=== PATIENT | male | born 1960 | race Caucasian/White ===

== ENCOUNTER 2018-10-29 00:25 | Outpatient (CLI) | payer OTHER ==
[2018-10-29 16:10] LABS: #Basophils 0.1 thou/uL (0.0-0.2); #Eosinphils 0.1 thou/uL (0.0-0.7); #Lymphocytes 2.3 thou/uL (1.20-3.40); #Monocytes 0.5 thou/uL (0.11-0.59); #Neutrophils 4.3 thou/uL (1.40-6.50); %Basophils 1.1 % (0.0-1.0); %Eosinophils 1.3 % (0.0-10.0); %Lymphocytes 31.9 % (21.0-51.0); %Monocytes 6.6 % (0.0-10.0); %Neutrophils 59.1 % (42.0-75.0); Hemoglobin 14.9 g/dL (14.0-18.0); Mean Corpuscular HGB CONC 33.9 g/dL (32.0-36.0); Mean Corpuscular Hemoglobin 32.7 pg (27.0-31.0); Mean Corpuscular Volume 96.5 fL (78.0-98.0); Mean Platelet Volume 7.4 fL (7.4-10.4); Platelet Count 282 thou/uL (130-400); RBC Distribution Width 12.1 % (11.5-14.5); Red Blood Cell (RBC) Count 4.55 mill/uL (4.70-6.10); White Blood Cell (WBC) Count 7.2 thou/uL (4.8-10.8)
[2018-10-29 16:20] LABS: Bacteria/HPF None Seen HPF (None Seen); Hyaline Casts/LPF NONE SEEN LPF (0-3 Hyaline); RBC/HPF None Seen HPF (0-3); Squamous Epithelial 0-3 HPF (0-3); WBC/HPF None Seen HPF (0-3)
== END 2018-10-29 00:26 | disposition home or self-care (01) ==
LOC: LABBT 00:25
PROVIDERS: ATTEND Orthopaedic Surgery Hand Surgery
DX: Z01.812 Encounter for preprocedural laboratory examination (principal); M72.0 Palmar fascial fibromatosis [Dupuytren]
CPT/HCPCS: 81015; 85025

== ENCOUNTER 2018-10-30 10:52 | Day surgery (SDC) | payer OTHER ==
[2018-10-29 14:02] VITALS: BMI 25.0
[2018-10-30] MEDS ORDERED: Fentanyl 100 MCG/2 ML VIAL ONE ×2 (12:50→15:23)
[2018-10-30] MEDS ORDERED: Lidocaine 1% PF 5 ML VIAL ONE (13:25)
[2018-10-30] MEDS ORDERED: Dexamethasone 20 MG/5 ML VIAL ONE (13:25)
[2018-10-30] MEDS ORDERED: ePHEDrine 50 MG/ML VIAL ONE (13:25)
[2018-10-30] MEDS ORDERED: PROPOFOL 200 MG/20 ML VIAL ONE (13:25)
[2018-10-30] MEDS ORDERED: Betamet Acet/Betamet Na Ph 30 MG/5 ML VIAL ONE (13:26)
[2018-10-30] MEDS ORDERED: Bacitracin Zinc Ointment 30 gm TUBE ONE (13:26)
[2018-10-30] MEDS ORDERED: Bupivacaine PF 0.5% 30 ML VIAL ONE (13:26)
[2018-10-30] MEDS ORDERED: Ketorolac Tromethamine 30 MG/ML VIAL ONE (17:19)
--- NOTE | 2018-11-02 11:15 | OP ---
DATE OF PROCEDURE: 10/30/2018 PREOPERATIVE DIAGNOSIS: 1. Left small finger Dupuytren's cord with tremendous neurovascular involvement. 2. Left ring finger Dupuytren's cord with less. PROCEDURE PERFORMED: 1. Left small finger and left ring finger subtotal palmar fasciectomy involving digits and palm. 2. Excision of Dupuytren's cord, left ring finger. 3. Excision of Dupuytren's cord, left small finger (almost 20 cm long). 4. Left small finger digital nerve neuroplasty x2, radial and ulnar. 5. Left ring finger digital neuroplasty x2, radial and ulnar. 6. Subtotal left palmar fasciectomy, the primary central cord which had spiraling of the small finger radial digital nerve completely around it from volar to midline to sub intrasheath and then out midline again. 7. Application of short-arm splint. ESTIMATED BLOOD LOSS: 20 mL. TOURNIQUET TIME: 17 minutes. Remember, the primary finding of talus was candy (candy-cane), digital nerve looping around the cord at the level of the MP joint. DESCRIPTION OF PROCEDURE: After successful general LMA technique, the limb prepped and draped. We outlined the zigzag incision to include the ring finger very thick cord that appeared to be more dimpling than what would later be demonstrated. We exsanguinated the limb, inflated the tourniquet, did time-out appropriately, 250 mmHg pressure. We then took the zigzag incision and carried through skin and subcutaneous tissue and immediately after we went through the dermis, we developed a combination of sharp dissection with tenotomy scissors and blunt dissection with sharp Crile. Then, we noticed first that the patient's small finger ring finger cord was approximately 2 cm long and bifurcated from the central cord on the palm and the index finger approximately 1 cm from the nerve, proximal to the nerve bifurcation of the 4th webspace. We identified the nerve, and then carried distally and immediately noticed that "it had a medial, superficial, and anterior orientation when it crossed over and then candy-cane around the mass at the level of the MP joint and then it came out through the mass at the level of the base of the middle phalanx." We identified the radial digital nerve on the ring finger from the ulnar digital nerve through the same incision, protected them and finally, we visualized the ulnar digital nerve of the small finger and protected it. It too was primarily lateral, became midline, superficial, anterior, and distally. Once we had done all the dissection to free the nerve, to include entering the mass to separate it into 2 halves in order to fully visualize the critical contact information, we were able to completely free all the nerves. Once this was done, the distal portion of the Dupuytren's cord in the finger was over the middle to distal third junction of the middle phalanx and we carried this through skin, subcutaneous tissue on both sides, protecting the vascular bundle, identified the neuro bundle and then slowly, but surely lifted out this all mass. Then, we did the same thing on the ulnar side protecting the nerve. At this time, the nerve wound not wrap into the mass, but had been wrapped proximally. We then removed the remaining portion of the ring finger using same technique, subtotal palmar fasciectomy, extensive subtotal palmar fasciectomy back proximal to the most proximal eruption and then once we had done this, we were able to lift it out at its root from the transverse carpal ligament without neurological vascular damage. We inflated the tourniquet, obtained hemostasis with a combination of techniques and then we were able to obtain hemostasis once we deflated the tourniquet and the final part of this procedure was closure of the wound. Once the tourniquet was deflated at 117 minutes, we were able to see that we had performed within the within allotted tissue planes of all digital nerve, common and proper were preserved throughout the entire granado. Then, we placed Celestone on the wound 5 mL, obtained full hemostasis gently, and then closed the incision with interrupted 4-0 nylon on the palm and 5-0 nylon simple on the palmar finger and 4-0 nylon mattress horizontal in the palmar wrist and metacarpals. Now, we finished injecting a total of 40 mL of 0.5% Marcaine which gave excellent blockade and the patient was prepared to be taken to recovery room. Here, the patient was prepared for discharge because he had no pain intermittently and in recovery room 30 minutes after surgery. He had a splint applied as well and he left the operating room with pink digit. No evidence of anesthetic or operative complication. Job ID: [id number]
== END 2018-10-30 18:42 | disposition home or self-care (01) ==
LOC: SDC 10:52
PROVIDERS: ATTEND Orthopaedic Surgery Hand Surgery
PROC: 0JNK0ZZ Release Left Hand Subcutaneous Tissue and Fascia, Open Approach (ICD-10-PCS; principal; 2018-10-30)
DX: M72.0 Palmar fascial fibromatosis [Dupuytren] (principal); F32.9 Major depressive disorder, single episode, unspecified; Z98.52 Vasectomy status; Z87.891 Personal history of nicotine dependence; Z98.890 Other specified postprocedural states; Z91.09 Other allergy status, other than to drugs and biological substances; Z91.018 Allergy to other foods; Z79.899 Other long term (current) drug therapy
CPT/HCPCS: 88304; J0702; J1100; J1885; J2001; J2704; J3010; J3490; S0020

== ENCOUNTER 2019-02-03 12:35 | Outpatient (CLI) | payer OTHER ==
--- NOTE | 2019-02-03 13:53 | MRI ---
MRI right hip performed W WO Con HISTORY: Right buttock mass, fibroma COMPARISON: None. FINDINGS: The area of interest was marked in the right posterior buttocks region. The exam was tailor ed for specific evaluation of this area. No mass is identified in this region. There is no abnormal enhancement seen. The underlying gluteus navi muscle is unremarkable. The gluteus minimus and medius tendon insertions appear unremarkable. No evidence of any stress edema or reaction. No soft tissue edema change. IMPRESSION: No evidence of soft tissue mass abnormal enhancement or soft tissue edema.
== END 2019-02-03 12:36 | disposition home or self-care (01) ==
LOC: TBSIIMAG 12:35
PROVIDERS: ATTEND Neurological Surgery
DX: D21.5 Benign neoplasm of connective and other soft tissue of pelvis (principal)

== ENCOUNTER 2019-02-04 07:49 | Emergency (ER) | payer OTHER ==
--- NOTE | 2019-02-04 08:45 | ULT ---
EXAM: Testicular/scrotal ultrasound HISTORY: Right testicular pain COMPARISON: None TECHNIQUE: Multiplanar grayscale and color Doppler images were obtained in a testicular/scrotal ultra sound. Spectral analysis of the Doppler waveforms of the testicles were performed. FINDINGS: Right testicle: Normal in echogenicity. No focal mass. Normal internal flow. Left testicle: Normal in echogenicity. No focal mass. Normal internal flow. Right epididymis. Enlarged compared to the left. No epididymal cyst. Normal internal flow. Left epididymis. No epididymal cyst. Normal internal flow. No hydrocele is present. No varicocele is present. IMPRESSION: Enlargement of the right epididymis without focal abnormality.
[2019-02-04 08:54] LABS: #Eosinphils 0.1 thou/uL (0.0-0.7); #Lymphocytes 1.8 thou/uL (1.20-3.40); #Monocytes 0.7 thou/uL (0.11-0.59); #Neutrophils 7.7 thou/uL (1.40-6.50); %Basophils 0.3 % (0.0-1.0); %Eosinophils 0.7 % (0.0-10.0); %Lymphocytes 17.7 % (21.0-51.0); %Monocytes 6.8 % (0.0-10.0); %Neutrophils 74.6 % (42.0-75.0); Hemoglobin 15.5 g/dL (14.0-18.0); Mean Corpuscular HGB CONC 34.8 g/dL (32.0-36.0); Mean Corpuscular Hemoglobin 32.8 pg (27.0-31.0); Mean Corpuscular Volume 94.4 fL (78.0-98.0); Mean Platelet Volume 7.3 fL (7.4-10.4); Platelet Count 279 thou/uL (130-400); RBC Distribution Width 11.6 % (11.5-14.5); Red Blood Cell (RBC) Count 4.74 mill/uL (4.70-6.10); White Blood Cell (WBC) Count 10.3 thou/uL (4.8-10.8)
[2019-02-04 09:26] LABS: ALT (SGPT) 17 U/L (8-55); AST (SGOT) 10 U/L (5-34); Albumin 4.4 g/dL (3.5-5.0); Alkaline Phosphatase 93 U/L (40-150); Anion Gap 14 mmol/L (10-20); BUN (Urea Nitrogen) 19 mg/dL (8.4-25.7); Bilirubin, Total 0.7 mg/dL (0.2-1.2); Calc. Creatinine Clearance 0 mL/min (70-130); Calcium 10.2 mg/dL (7.8-10.44); Carbon Dioxide 26 mmol/L (22-29); Chloride 99 mmol/L (98-107); Estimated GFR-MDRD 82; Globulin 2.9 g/dL (2.4-3.5); Glucose 349 mg/dL (70-105); Potassium 3.8 mmol/L (3.5-5.1); Protein, Total 7.3 g/dL (6.0-8.3); Sodium 135 mmol/L (136-145)
[2019-02-04] MEDS ORDERED: Ketorolac Tromethamine 60 MG/2 ML VIAL ONE (09:51)
[2019-02-04 10:16] LABS: Bilirubin Negative (Negative); Blood, Urine Small (Negative); Clarity Clear (Clear); Glucose, Urine (Dipstick) >=1000 mg/dL (Negative); Leukocyte Negative (Negative); Nitrite Negative (Negative); Protein, Urine (Dipstick) Negative (Neg-Trace); Specific Gravity, Urine 1.025 (1.005-1.030); Urobilinogen 0.2 mg/dL (0.2-1.0)
[2019-02-04 10:39] LABS: Bacteria/HPF None Seen HPF (None Seen); RBC/HPF 0-3 HPF (0-3); Squamous Epithelial 0-3 HPF (0-3); WBC/HPF 0-3 HPF (0-3)
[2019-02-04 10:40] LABS: Hyaline Casts/LPF NONE SEEN LPF (0-3 Hyaline)
== END 2019-02-04 11:04 | disposition home or self-care (01) ==
LOC: ERS 07:49
DX: N45.1 Epididymitis (principal)
CPT/HCPCS: 36415; 76870; 80053; 81003; 81015; 85025; 87086; 87491; 87591; 93976; 96372; J1885

== ENCOUNTER 2019-02-06 00:27 | Emergency (ER) | payer OTHER ==
[2019-02-06] MEDS ORDERED: Ketorolac Tromethamine 60 MG/2 ML VIAL ONE (01:10)
[2019-02-06] MEDS ORDERED: Morphine 4 MG/ML VIAL ONE ×2 (01:46→05:36)
[2019-02-06] MEDS ORDERED: methylPREDNISolone Sod Succ/PF 125 MG/2 ML VIAL ONE (05:36)
[2019-02-06] MEDS ORDERED: Ondansetron PF 4 MG/2 ML Vial ONE (05:36)
[2019-02-06] MEDS ORDERED: Methocarbamol 1 GM in Sodium Chloride 0.9% 250 ML 250 ML IVPB SCH (06:00)
--- NOTE | 2019-02-06 11:06 | ULT ---
PRELIMINARY REPORT/[facility]/EMERGENCY AFTER HOURS PROCEDURE: EXAM: US Scrotum EXAM DATE/TIME: 02/06/2019 2:07 AM CLINICAL HISTORY: 58 years old, male; Other: RT testicle pain; Prior surgery; Surgery date: 6+ months; Surgery type: Va sectomy TECHNIQUE: Imaging protocol: Real-time ultrasound of the scrotum and contents with color Doppler and image docum entation. COMPARISON: No relevant prior studies available. FINDINGS: Right Testicle: Normal. No mass. No torsion. Normal vascular flow. Left Testicle: Normal. No mass. No torsion. Normal vascular flow. Epididymides: Normal. Scrotum: Normal. IMPRESSION: Normal scrotal ultrasound. Thank you for allowing us to participate in the care of your patient. Dictated and Authenticated by: Cullen Yuan MD 02/06/2019 2:49 AM Central Time ([place] & [place]) FINAL REPORT TESTICULAR ULTRASOUND: Date: 02/06/19 HISTORY: Right testicle pain. FINDINGS: Real-time imaging of the right and left testicle performed. The right testicle measures 3.2 cm and th e left testicle measures 2.9 cm in size. No testicular mass seen. Epididymal regions are unremarkable . DOPPLER EVALUATION WITH SPECTRAL ANALYSIS: Normal flow shown to both testicles. IMPRESSION: Unremarkable testicular ultrasound. This report is in agreement with the preliminary report issued by [facility]. POS: [facility]
== END 2019-02-06 07:35 | disposition home or self-care (01) ==
LOC: ERS 00:27
DX: N45.1 Epididymitis (principal); M54.31 Sciatica, right side; F17.210 Nicotine dependence, cigarettes, uncomplicated; Z79.1 Long term (current) use of non-steroidal anti-inflammatories (NSAID); Z79.899 Other long term (current) drug therapy
CPT/HCPCS: 76870; 93976; 96365; 96372; 96375; J1885; J2270; J2405; J2800; J2930; J7050

== ENCOUNTER 2019-02-18 07:06 | Day surgery (SDC) | payer OTHER ==
[2019-02-17 12:46] VITALS: BMI 25.0
[2019-02-18 08:06] VITALS: BP 128/71; TEMP 97
--- NOTE | 2019-02-18 10:06 | RAD ---
Myelogram of Lumbarspine CLINICAL HISTORY: Low back pain, lumbar radiculopathy PROCEDURE: Informed consent was obtained. [employer] imaging was performed. Patient was placed in a prone position and the skin of the low back was prepped and draped in a standard sterile fashion. Topical anesthesia was achieved with buffered 1% lidocaine. 22-gauge spinal needle was then advanced uneventf ully into the thecal sac from a posterior para midline approach at the rightL2-3level. 9 cc of radiopaque contrast was instilled under low pressure into the thecal sac, upon return of clear colorl ess CSF the needle hub. Imaging was stored for documentation. Needle was removed. Patient tolerated the procedure well, without complication evident. Patient was then transferred to CT to undergo subsequent CT myelogram imaging. Reference separate carlitos valero(s) for additional details. FINDINGS: Intraoperative imaging reveals a needle overlying the lumbar spinal canal, with subsequent instillation of radiopaque contrast within the thecal sac. Fluoroscopy data:0.3minutes, 29mcg/sq m IMPRESSION: Technically successful myelogram, as above.
--- NOTE | 2019-02-18 10:52 | CT ---
CT LUMBAR SPINE WITH CONTRAST CT LUMBAR MYELOGRAM: HISTORY: Back Pain. Lumbar radiculopathy. COMPARISON: No prior CT exams of the lumbar spine available. FINDINGS: The conus medullaris is normal in morphology, terminating at the L 1-2 level. Evidence of interbody fusion of L4-5 with component of osseous incorporation traversing the disc spac e. Bilateral pedicle screws and bilateral vertical interconnecting rods span the L4 and L5 levels without acute hardware complication seen. Contrast does opacify the thecal sac diffusely although the re is dependent layering within the patient's lower vertebral canal at site of slightly accentuated lordosis. L1-2:No significant, extrinsic mass effect upon the thecal sac or neural foramina. L2-3:Mild disc bulge posteriorly with mild effacement of ventral thecal sac. No high-grade foraminal stenosis. L3-4:Moderate concentric disc bulge as well as osteophyte ridge with moderate central canal stenosis. Bilateral uncinate process hypertrophy. There is moderate right and mild left neural foraminal narrowing. L4-5:Broad-based disc osteophyte without high-grade central canal stenosis, status post posterior dec ompression. Mild osseous narrowing of each neural foramen. L5-S1:No significant stenosis. IMPRESSION: 1. Postoperative fusion, L4-5 level without hardware complication identified. 2. Concentric disc bulge and osteophyte ridge at L3-4 results in moderate central canal stenosis as well as moderate right neural foraminal stenosis. Transcribed Date/Time: 02/18/2019 10:57 AM
[2019-02-18] MEDS ORDERED: Iopamidol-M 200 41% 20 ML VIAL ONE (11:40)
== END 2019-02-18 10:15 | disposition home or self-care (01) ==
LOC: RAD 07:06
PROVIDERS: ATTEND Neurological Surgery
PROC: B02B1ZZ Computerized Tomography (CT Scan) of Spinal Cord using Low Osmolar Contrast (ICD-10-PCS; principal; 2019-02-18)
DX: M54.16 Radiculopathy, lumbar region (principal); F41.9 Anxiety disorder, unspecified; F32.9 Major depressive disorder, single episode, unspecified; F17.200 Nicotine dependence, unspecified, uncomplicated; K21.9 Gastro-esophageal reflux disease without esophagitis; Z91.018 Allergy to other foods; Z91.048 Other nonmedicinal substance allergy status
CPT/HCPCS: 62304; 72132

== ENCOUNTER 2020-07-26 06:41 | Outpatient (CLI) | payer OTHER ==
[2020-07-26 15:15] LABS: #Eosinphils 0.1 10x3/uL (0.0-0.5); #Monocytes 0.4 10x3/uL (0.0-1.1); #Neutrophils 3.1 10x3/uL (1.5-8.4); %Basophils 0.3 % (0.0-2.0); %Eosinophils 2.1 % (0.0-6.0); %Lymphocytes 39.1 % (18.0-47.0); %Monocytes 6.9 % (0.0-10.0); %Neutrophils 51.1 % (40.0-75.0); Hemoglobin 14.9 g/dL (14.0-18.0); Mean Corpuscular HGB CONC 34.7 G/DL (32.0-36.0); Mean Corpuscular Hemoglobin 32.4 PG (27.0-33.0); Mean Corpuscular Volume 93.3 fl (80.0-100.0); Mean Platelet Volume 9.7 fl (7.4-10.4); Platelet Count 247 10x3/uL (130-400); RBC Distribution Width 12.1 % (11.5-14.5); White Blood Cell (WBC) Count 6.1 10x3/uL (4.5-11.0)
[2020-07-27 02:20] LABS: SARS-CoV-2 MS2 Positive; SARS-CoV-2 N Gene Negative; SARS-CoV-2 S Gene Negative; SARS-CoV-2 by NAA Not Detected (NotDetected); SARS-CoV-2 orf1ab Negative
== END 2020-07-26 06:42 | disposition home or self-care (01) ==
LOC: LABBT 06:41
PROVIDERS: ATTEND Orthopaedic Surgery Hand Surgery
DX: Z01.812 Encounter for preprocedural laboratory examination (principal); Z20.828 Contact with and (suspected) exposure to other viral communicable diseases; R22.32 Localized swelling, mass and lump, left upper limb
CPT/HCPCS: 85025; 87635; U0003

== ENCOUNTER 2020-07-31 11:26 | Day surgery (SDC) | payer OTHER ==
[2020-07-28 13:44] VITALS: BMI 24.3
[~2020-07-31 11:26] MED LIST: Dexamethasone 20 MG/5 ML VIAL ONE; Ketorolac Tromethamine 30 MG/ML VIAL ONE; Lidocaine 1% PF 5 ML VIAL ONE; Ondansetron PF 4 MG/2 ML Vial ONE; PROPOFOL 200 MG/20 ML VIAL ONE
[2020-07-31] MEDS ORDERED: Fentanyl 100 MCG/2 ML VIAL ONE ×2 (13:08→15:20)
[2020-07-31] MEDS ORDERED: Midazolam HCl 2 mg/2 ml Vial ONE (13:08)
[2020-07-31] MEDS ORDERED: Bacitracin Zinc Ointment 30 gm TUBE ONE (13:12)
[2020-07-31] MEDS ORDERED: Bupivacaine PF 0.5% 30 ML VIAL ONE (13:12)
[2020-07-31] MEDS ORDERED: Betamet Acet/Betamet Na Ph 30 MG/5 ML VIAL ONE (13:12)
--- NOTE | 2020-08-01 06:40 | OP ---
DATE OF PROCEDURE: 07/31/2020 PREOPERATIVE DIAGNOSIS: Left small finger mass. POSTOPERATIVE DIAGNOSIS: Left small finger mass with digital nerve compression. PROCEDURES PERFORMED: 1. Left small finger ulnar digital nerve neuroplasty. 2. Left small finger excision and biopsy of mass, 2.0 cm, appeared to be a mucinous cyst. SPECIMEN SENT: 2.0 cm mucinous cyst with cavity. ESTIMATED BLOOD LOSS: 5 mL. TOURNIQUET: 16 minutes. INDICATIONS FOR PROCEDURE: The patient is now almost one year since excellent result from Dupuytren's release that was very complex in small finger, but developed this progressive mass over the last two months. He presented with intermittent numbness, but did not have Tinel's over the mass. DESCRIPTION OF PROCEDURE: After successful general endotracheal anesthesia, the was limb prepped and draped. Time-out was done appropriately. We then injected with 10 mL of 0.5% Marcaine metacarpophalangeal joint level block, and for the small finger, this was adequate. We waited for 5 minutes and then exsanguinated the limb, inflated tourniquet to 250 mmHg pressure. We made a zigzag incision 1 cm distal and 2 cm proximal to the mass. We saw the mass subcutaneously and it clearly was a fountain-green mucinous cyst with a cavity. We then next visualized proximally the digital nerve, followed until we saw where it was being compressed by the cavity and the scar around, so we freed this with blunt and sharp dissection combination to protect the nerve and nearby artery. Once we had done this, we then finished the midline excision of the mass, protecting the opposite side nerve. The cavity came with it. We irrigated the area and placed 3 mL of Celestone, moist sponge, and deflated the tourniquet. The neuroplasty was complete. I closed the incision with interrupted 4-0 nylon in simple pattern, and the patient left the operating room in a bulky dressing without evidence of anesthetic or operative complication. Job ID: [id number]
== END 2020-07-31 16:35 | disposition home or self-care (01) ==
LOC: SDC 11:26
PROVIDERS: ATTEND Orthopaedic Surgery Hand Surgery
PROC: 01N40ZZ Release Ulnar Nerve, Open Approach (ICD-10-PCS; principal; 2020-07-31)
PROC: 0LB80ZZ Excision of Left Hand Tendon, Open Approach (ICD-10-PCS; principal; 2020-07-31)
DX: M67.442 Ganglion, left hand (principal); F17.210 Nicotine dependence, cigarettes, uncomplicated; F32.9 Major depressive disorder, single episode, unspecified; Z79.899 Other long term (current) drug therapy; Z91.018 Allergy to other foods; Z91.048 Other nonmedicinal substance allergy status
CPT/HCPCS: 88304; J0690; J0702; J1100; J1885; J2250; J2405; J2704; J3010; S0020

== ENCOUNTER 2021-10-16 15:00 | Outpatient (CLI) | payer BC | END 2021-10-16 15:01 | disposition home or self-care (01) | LOC: BICULT 15:00 | PROVIDERS: ATTEND Internal Medicine Cardiovascular Disease | DX: E04.1 Nontoxic single thyroid nodule (principal) | CPT/HCPCS: 76536 ==

== ENCOUNTER 2023-06-26 15:54 | Outpatient (CLI) | payer BC | END 2023-06-26 15:55 | disposition home or self-care (01) | LOC: ULT 15:54 | PROVIDERS: ATTEND Nurse Practitioner Family | DX: S76.211D Strain of adductor muscle, fascia and tendon of right thigh, subsequent encounter (principal) | CPT/HCPCS: 76882 ==

== ENCOUNTER 2023-09-05 11:17 | Outpatient (CLI) | payer BC | END 2023-09-05 11:18 | disposition home or self-care (01) | LOC: BICRAD 11:17 | PROVIDERS: ATTEND Nurse Practitioner Family | DX: M25.551 Pain in right hip (principal); M16.11 Unilateral primary osteoarthritis, right hip ==

== ENCOUNTER 2025-06-07 15:05 | Outpatient (CLI) | payer BC | END 2025-06-07 15:06 | disposition home or self-care (01) | LOC: BICMRI 15:05 | PROVIDERS: ATTEND Nurse Practitioner Family | DX: R29.810 Facial weakness (principal); I67.82 Cerebral ischemia | CPT/HCPCS: 70551 ==